=== PATIENT | female | born 1950 | race Caucasian/White ===

== ENCOUNTER → 2020-12-08 16:27 | Outpatient (CLI) | payer MEDICARE, OTHER, SELFPAY ==
[2020-12-08 17:17] LABS: Absolute Lymphocyte Count 1.95 X10^3/uL (0.83-4.51); Absolute Neutrophil Count 4.3 X10^3/uL (2.0-7.7); Basophil# 0.04 X10^3/uL; Basophil% 0.6 % (0-1); Eosinophil# 0.04 X10^3/uL; Eosinophils% 0.6 % (0-5); Hematocrit 35.5 % (37-47); Hemoglobin 11.8 g/dL (12.0-15.0); Lymphocyte # 1.95 X10^3/ul (4.0); Mean Corp Hgb Conc 33.2 g/dL (32-36); Mean Corpuscular Volume 84.3 fL (81-99); Mean Platelet Vol. 9.7 fl (6.2-12.0); Monocyte# 0.42 X10^3/uL; Monocyte% 6.2 % (0-10); NRBC Flagged by Analyzer 0 % (0-5); Neutrophil # 4.26 X10^3/uL (2.7-7.7); Neutrophil % 63.3 % (47-70); Platelet Count 298 K/mm3 (150-450); RBC Distribution Width CV 13.6 % (11.6-14.6); RBC Distribution Width SD 40.6 fl (35.1-43.9); Red Blood Count 4.21 M/mm3 (4.2-5.4); White Blood Count 6.7 K/mm3 (4.4-11.0)
--- NOTE | 2020-12-08 17:20 | RAD_ITS ---
HISTORY: BACK PAIN COMPARISON: None FINDINGS: # of images incl. paperwork: 2 XR Spine Lumbar 2 views: Levoscoliosis within the thoracic spine. Slight hyperlordosis within the lower lumbar spine. Superior endplate bowing within the L1, L2, L3, and L4 vertebral bodies due to insufficiency fractures. Do not perceive any of these is acute. Kyphosis due to insufficiency fractures within the lower thoracic spine, greatest at the T9, T10, and T11 levels. Dextroscoliosis at the upper lumbar spine is minimal apex L2. Bone mineral density appears to be diminished. Atherosclerosis within the abdominal aorta. RAD/Lumbar Spine 2 or 3 Views IMPRESSION: Insufficiency fractures to several superior endplates within the lumbar spine, and greater wedging within the lower thoracic spine. These are all likely due to osteoporosis and insufficiency fractures. I do not perceive if any of these are acute.. at 0315 Reported and signed by: Johnie Stokes MD Electronically Signed: Johnie Stokes MD at 3:14 EST Tel , Service support ,
--- NOTE | 2020-12-08 17:20 | RAD_ITS ---
HISTORY: BACK PAIN COMPARISON: None FINDINGS: # of images incl. paperwork: 4 XR Spine Thoracic 4 images: Kyphosis is fairly marked. Wedge compression insufficiency fractures throughout the lower thoracic spine. I cannot proceed with any of these are acute. Minimal levoscoliosis. Calcific plaque within the aortic arch. Decreased bone mineral density. RAD/Thoracic Spine 3 Views IMPRESSION: Multiple wedge compression insufficiency fractures within the mid to lower thoracic spine of unknown acuity with a resultant kyphosis. Decreased bone mineral density. at 0316 Reported and signed by: Johnie Stokes MD Electronically Signed: Johnie Stokes MD at 3:15 EST Tel , Service support ,
[2020-12-08 17:58] LABS: ALB/GLOB Ratio 0.7 RATIO (0.9-2.4); AST(SGOT) 17 U/L (15-37); Alanine Aminotransfer ALT/SGPT 18 U/L (13-56); Albumin, Serum 3.2 g/dL (3.2-5.0); Alkaline Phosphatase 131 U/L (45-117); Anion Gap 5 (5-15); BUN 12 mg/dL (7-18); BUN/Creat Ratio 17.2 RATIO (10-20); Chloride 102 mmol/L (98-107); EST Glomerular Filtration Rate 88 mL/min (>60); Est Glom Filt Rate - Afr Amer 106 mL/min (>60); Globulin 4.5 g/dL (2.2-4.2); Glucose 110 mg/dL (74-106); Potassium 4.1 mmol/L (3.5-5.1); Protein, Total 7.7 g/dL (6.4-8.2); Sodium Level 136 mmol/L (136-145); Thyroid Stim Hormone (TSH) 2.81 uIU/mL (0.358-3.74)
[2020-12-09 08:57] LABS: Hepatitis C Antibody Non-Reactive (Nonreactive)
== END ==
LOC: POLAB3 16:36 → RAD 17:01
PROVIDERS: PCP Family Medicine Geriatric Medicine; Referring Provider Family Medicine Geriatric Medicine; Visit Provider Family Medicine Geriatric Medicine
DX: E55.9 Vitamin D deficiency, unspecified (principal); R53.83 Other fatigue; M54.6 Pain in thoracic spine; M54.5 Low back pain; Z13.89 Encounter for screening for other disorder
CPT/HCPCS: 36415; 72072; 72100; 80053; 82306; 84443; 85025; 86803

== ENCOUNTER → 2020-12-14 07:55 | Outpatient (CLI) | payer MEDICARE, OTHER, SELFPAY ==
--- NOTE | 2020-12-14 08:02 | BD_ITS ---
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 COMPARISON: None. FINDINGS: Lumbar Spine (L1-L4): g/cm2 (0.476) / T-score (-5.8) / Z-score (-4.1) Findings are suggestive of osteoporosis with a high fracture risk. Left Femur Total: g/cm2 (0.430) / T-score (-4.6) / Z-score (-3.0) Left Femoral Neck: g/cm2 (0.465) / T-score (-4.1) / Z-score (-2.3) Right Femur Total: g/cm2 (0.376) / T-score (-5.0) / Z-score (-3.4) Right Femoral Neck: g/cm2 (0.450) / T-score (-4.2) / Z-score (-2.4) BD/DXA BONE DENS W/VERT FX ASMT IMPRESSION: The patient is considered osteoporotic as outlined below according to [employer] (WHO) criteria with a high fracture risk. Reference Information: The T-score is the number of standard deviations above or below the standard which is normal for young adults at their peak bone mineral density. The World Health Organization (WHO) interprets the T-scores as follows: Above -1 Normal bone density Between -1 and -2.5 Osteopenia Equal to / or below -2.5 Osteoporosis As a practical clinical guideline, osteopenia may be graded as follows: Mild -1 through -1.5 Moderate -1.6 through -2.0 Severe -2.1 through -2.4 The Z-score is the number of standard deviations above or below age-matched controls. A Z-score of less than -1.5 would be considered abnormal. References: 1. NIH Osteoporosis and Related Bone Diseases www osteo.org 2. International Society for Clinical Densitometry www iscd.org 3. National Osteoporosis Foundation www nof.org Electronically Signed: Andrew Vieira, at 15:50 EST , Service support ,
== END ==
PROVIDERS: PCP Family Medicine Geriatric Medicine; Referring Provider Family Medicine Geriatric Medicine; Visit Provider Family Medicine Geriatric Medicine
DX: Z78.0 Asymptomatic menopausal state (principal)
CPT/HCPCS: 77085

== ENCOUNTER → 2021-01-09 15:39 | Outpatient (CLI) | payer MEDICARE, OTHER, SELFPAY ==
[2021-01-09 16:49] LABS: Absolute Lymphocyte Count 2.11 X10^3/uL (0.83-4.51); Absolute Neutrophil Count 4.2 X10^3/uL (2.0-7.7); Basophil# 0.04 X10^3/uL; Basophil% 0.6 % (0-1); Eosinophil# 0.05 X10^3/uL; Eosinophils% 0.7 % (0-5); Hematocrit 37.2 % (37-47); Hemoglobin 11.8 g/dL (12.0-15.0); Lymphocyte # 2.11 X10^3/ul (4.0); Lymphocyte % 30.7 % (19-41); Mean Corp Hgb Conc 31.7 g/dL (32-36); Mean Corpuscular Hgb 26.7 pg (27.0-32.0); Mean Corpuscular Volume 84.2 fL (81-99); Mean Platelet Vol. 9.9 fl (6.2-12.0); Monocyte# 0.43 X10^3/uL; Monocyte% 6.3 % (0-10); NRBC Flagged by Analyzer 0 % (0-5); Neutrophil # 4.23 X10^3/uL (2.7-7.7); Neutrophil % 61.6 % (47-70); Platelet Count 315 K/mm3 (150-450); RBC Distribution Width CV 13.5 % (11.6-14.6); RBC Distribution Width SD 41.7 fl (35.1-43.9); Red Blood Count 4.42 M/mm3 (4.2-5.4); White Blood Count 6.9 K/mm3 (4.4-11.0)
== END ==
PROVIDERS: PCP Family Medicine Geriatric Medicine; Visit Provider Family Medicine Geriatric Medicine
DX: D64.9 Anemia, unspecified (principal)
CPT/HCPCS: 36415; 85025

== ENCOUNTER → 2021-02-13 07:34 | Outpatient (CLI) | payer MEDICARE, OTHER, SELFPAY ==
[2021-02-01 14:04] VITALS: BMI 20.9
--- NOTE | 2021-02-13 07:36 | ECHOD_ITS ---
Reason For Study: Arrhythmia Procedure This was a 2D Doppler, Color Flow transthoracic echocardiogram. Technically difficult study due to patients body habitus. patient had a hard time laying on left side due to left shoulder pain. Exam performed in department. Left Ventricle Normal LV size. Left ventricular systolic function is normal. Stage 1 diastolic dysfunction. Transmitral and pulmonary venous doppler flow suggestive of impaired relaxation of left ventricle. No regional wall motion abnormalities noted. Right Ventricle Normal RV size. Normal systolic function. Atria Normal left atrium. Normal right atrium. Mitral Valve Normal mitral valve. Mild focal mitral valve calcification of the anterior leaflet. Tricuspid Valve Normal tricuspid valve. Aortic Valve Normal aortic valve. Pulmonic Valve Normal pulmonic valve. Great Vessels Normal aortic root. The pulmonary artery is normal size. Normal inferior vena cava. Pericardium/Pleural No pericardial effusion. MMode/2D Measurements & Calculations LVIDd: 3.2 cm IVSd: 0.87 cm Ao root diam: 3.8 cm LVIDs: 2.2 cm LVPWd: 0.76 cm LA dimension: 2.7 cm RVDd: 3.0 cm FS: 32.1 % LAV(MOD-bp): 26.4 ml LA A4 area: 10.1 cm2 RA A4 area: 7.8 cm2 LAV(MOD-bp) Indexed: 20.4 ml/m2 LAV(MOD-sp2): 27.8 ml LAV(MOD-sp4): 23.6 ml Time Measurements MV dec time: 0.32 sec Doppler Measurements & Calculations MV E max darrell: 57.2 cm/sec Lat Peak E' Darrell: 7.4 cm/sec Med Peak E' Darrell: 7.2 cm/sec MV A max darrell: 79.3 cm/sec E/E' lat: 7.8 E/E' med: 7.9 MV E/A: 0.72 MV V2 max: 79.4 cm/sec MV P1/2t max darrell: 58.7 cm/sec Ao V2 max: 106.6 cm/sec MV max P.5 mmHg MV P1/2t: 98.4 msec Ao max P.5 mmHg MV V2 mean: 41.5 cm/sec MV dec slope: 174.7 cm/sec2 MV mean P.80 mmHg MVA(P1/2t): 2.2 cm2 MV V2 VTI: 23.2 cm LV V1 max: 89.1 cm/sec PA V2 max: 89.6 cm/sec LV V1 max P.2 mmHg Interpretation Summary Normal LV size. Left ventricular systolic function is normal. Stage 1 diastolic dysfunction. Structurally normal valves. Ordering Physician: Edilson Cervantes Referring Physician: Odin Yao Chi Performed By: Miguel Caputo RCS
== END ==
PROVIDERS: PCP Family Medicine Geriatric Medicine; Referring Provider Internal Medicine Cardiovascular Disease; Visit Provider Internal Medicine Cardiovascular Disease
DX: R00.2 Palpitations (principal)
CPT/HCPCS: 93306

== ENCOUNTER → 2021-04-21 16:38 | Outpatient (CLI) | payer MEDICARE, OTHER, SELFPAY ==
[2021-02-01 14:04] VITALS: BMI 20.9
== END ==
PROVIDERS: PCP Family Medicine Geriatric Medicine; Referring Provider Family Medicine Geriatric Medicine; Visit Provider Family Medicine Geriatric Medicine
DX: R06.02 Shortness of breath (principal)
CPT/HCPCS: 87635; C9803; U0002

== ENCOUNTER → 2021-07-25 14:41 | Outpatient (CLI) | payer MEDICARE, OTHER, SELFPAY ==
--- NOTE | 2021-07-25 14:44 | RAD_ITS ---
STUDY: X-RAY CHEST REASON FOR EXAM: Female, 71 years old. SOB TECHNIQUE: PA and lateral views of the chest. COMPARISON: None. FINDINGS: There is evidence of a 8.4 cm x 5.5 cm mass in the medial aspect of the right upper lobe. There is evidence of decreased markings in the lungs suggestive of emphysematous change. There is no demonstrated pleural abnormality. Normal size heart. Normal mediastinum and tyler. Normal visualized pulmonary arteries. There is atherosclerotic calcification of the aortic arch with tortuosity. There is demineralization of the osseous structures. Increased kyphosis. Loss of height of multiple thoracic vertebrae. Normal visualized ribs, clavicles, and shoulders. There is no demonstrated abnormality of the visualized soft tissue structures of the upper abdomen. RAD/Chest PA and Lateral IMPRESSION: 8.4cm x 5.5 cm mass in the medial aspect of the right upper lobe. A neoplastic process should be ruled out. CT recommended. Hyperinflation. Electronically Signed: Andrew Vieira MD at 13:21 EDT , Service support ,
== END ==
PROVIDERS: PCP Family Medicine Geriatric Medicine; Referring Provider Family Medicine Geriatric Medicine; Visit Provider Family Medicine Geriatric Medicine
DX: R06.02 Shortness of breath (principal)
CPT/HCPCS: 71046

== ENCOUNTER → 2021-07-26 11:47 | Outpatient (CLI) | payer MEDICARE, OTHER, SELFPAY | PROVIDERS: PCP Family Medicine Geriatric Medicine; Referring Provider Family Medicine Geriatric Medicine; Visit Provider Family Medicine Geriatric Medicine | DX: R68.83 Chills (without fever) (principal) | CPT/HCPCS: 87635; 87804; 87807; C9803; U0005; U0003 ==

== ENCOUNTER → 2021-07-26 13:47 | Outpatient (CLI) | payer MEDICARE, OTHER, SELFPAY ==
--- NOTE | 2021-07-26 13:50 | CT_ITS ---
STUDY: CT CHEST WITHOUT CONTRAST REASON FOR EXAM: Female, 71 years old. MASS ON CXR RADIATION DOSAGE (If Supplied By Facility): CTDIvol = ( 6.13 ) mGy, DLP = ( 199.10 ) mGycm TECHNIQUE: Transaxial imaging was performed without the administration of intravenous contrast material. Multiplanar coronal and sagittal images were reformatted. Individualized dose optimization techniques were used for this CT. COMPARISON: Comparison is made with prior chest radiograph dated 07/25/2021. FINDINGS: There is a 4.8 cm x 5.9 cm x 6.3 cm mass in the medial aspect of the right upper lobe abutting the trachea. This extends into the right suprahilar region. Hyperinflation. Diffuse emphysematous changes. There is no demonstrated pleural abnormality. There are calcifications of the coronary arteries. Normal mediastinum. Normal hilar regions. Normal unenhanced pulmonary arteries. There is atherosclerotic calcification of the aortic arch with tortuosity and elongation of the aortic arch and descending thoracic aorta. There is demineralization of the thoracic spine. Osteophytes of mid and lower dorsal vertebrae. Increased kyphosis. There is no demonstrated abnormality of the visualized upper abdomen. CT/Chest without Contrast IMPRESSION: 4.8 cm x 5.9 cm x 6.3 cm mass in the medial aspect of the right upper lobe extending into the right suprahilar region. A neoplastic process should be ruled out. Electronically Signed: Andrew Vieira MD at 14:16 EDT , Service support ,
== END ==
PROVIDERS: PCP Family Medicine Geriatric Medicine; Referring Provider Family Medicine Geriatric Medicine; Visit Provider Family Medicine Geriatric Medicine
DX: R91.8 Other nonspecific abnormal finding of lung field (principal); R68.83 Chills (without fever)
CPT/HCPCS: 71250; 87635; 87804; 87807; C9803; U0005; U0003